=== PATIENT | female | born 1995 | race Caucasian/White ===

== ENCOUNTER 2017-01-01 23:56 | Emergency (ER) ==
[2017-01-02 00:12] VITALS: BP 115/75; TEMP 99.7; BMI 26.6
[2017-01-02] MEDS ORDERED: DECADRON 4 MG/ML SDV IM STA (00:21)
[2017-01-02] MEDS ORDERED: ZANTAC IM STA (00:22)
[2017-01-02] MEDS ORDERED: TAGAMET PO STA (00:33)
[2017-01-02] MEDS ORDERED: BENADRYL IM STA (00:36)
--- NOTE | 2017-01-02 00:45 | ED.PDOC ---
General ED Provider: Dr. ZOE FERMIN-ER Chief Complaint: Rash Stated Complaint: velma got this rash--im allergic to something Time Seen by Physician: 00:00 Mode of Arrival: Walk-In Information Source: Patient Exam Limitations: No limitations Nursing and Triage Documentation Reviewed and Agree: Yes Skin Complaint Exam - Skin Rash/Itching Complaint/Exam Onset/Duration: several hoursd Symptoms Are: Still present Initial Severity: Mild Current Severity: Moderate Location: neck and right arm Potential Exposures: Reports: Unknown Aggravating: Reports: None Alleviating: Reports: None Associated Signs and Symptoms: Denies: Difficulty breathing, Fever, Chills Skin Findings: Present: Dry scaly skin Differential Diagnoses: Allergic Reaction, Contact Dermatitis Review of Systems - Review Of Systems Constitutional: Reports: No symptoms Eyes: Reports: No symptoms Ears, Nose, Mouth, Throat: Reports: No symptoms Respiratory: Reports: No symptoms Cardiac: Reports: No symptoms GI: Reports: No symptoms : Reports: No symptoms Musculoskeletal: Reports: No symptoms Skin: Reports: Rash Neurological: Reports: No symptoms Endocrine: Reports: No symptoms Hematologic/Lymphatic: Reports: No symptoms All Other Systems: Reviewed and Negative Past Medical History - Past Medical History Endocrine: Reports: Unknown Cardiovascular: Reports: Unknown Respiratory: Reports: Unknown Hematological: Reports: Unknown Gastrointestinal: Reports: Unknown Genitourinary: Reports: Unknown Neuro/Psych: Reports: Unknown Musculoskeletal: Reports: Unknown Cancer: Reports: Unknown Last Menstrual Period: 12/21/16 - Surgical History General Surgical History: Reports: Unknown - Family History Family History: Reports: Unknown - Social History Smoking Status: Current every day smoker Hx Substance Use: Yes (marijuana) Alcohol Screening: Occasionally Lives: With family - Immunizations Tetanus Shot up to Date: Yes Physical Exam - Physical Exam Appearance: Well-appearing, No pain distress, Well-nourished Eyes: MERVAT, EOMI, Conjunctiva clear ENT: Ears normal, Nose normal, Oropharynx normal Respiratory: Airway patent Cardiovascular: RRR, Pulses normal, No rub, No murmur GI/: Soft, Nontender, No masses, Bowel sounds normal, No Organomegaly Musculoskeletal: Normal strength, ROM intact, No edema, No calf tenderness Skin: Warm (noted urticarial rash over right arm and neck anteriorly), Dry, Normal color Neurological: Sensation intact, Motor intact, Reflexes intact, Cranial nerves intact, Alert, Oriented Psychiatric: Affect appropriate, Mood appropriate Critical Care Note - Critical Care Note Total Time (mins): 0 Course - Course Orders, Labs, Meds: Orders Category Date Time Status Cimetidine [Tagamet] MEDS 01/02/17 00:33 Discontinued 400 mg PO ONCE STA Dexamethasone 4 mg/ml Inj [Decadron 4 mg/ml Sdv] MEDS 01/02/17 00:21 Discontinued 8 mg IM ONCE STA Diphenhydramine Inj [Benadryl] MEDS 01/02/17 00:36 Discontinued 50 mg IM ONCE STA Medications Discontinued Medications Generic Name Dose Route Start Last Admin Trade Name Miteshq PRN Reason Stop Dose Admin Cimetidine 400 mg 01/02/17 00:33 01/02/17 00:41 Tagamet PO 01/02/17 00:34 400 mg ONCE STA Administration Dexamethasone Sodium Phosphate 8 mg 01/02/17 00:21 01/02/17 00:38 Decadron 4 Mg/Ml Sdv IM 01/02/17 00:22 8 mg ONCE STA Administration Diphenhydramine HCl 50 mg 01/02/17 00:36 01/02/17 00:40 Benadryl IM 01/02/17 00:37 50 mg ONCE STA Administration Vital Signs: Temp Pulse Resp BP Pulse Ox 01/01/17 23:59 99.7 F H 88 20 115/75 97 Departure - Departure Time of Disposition: 01:47 Disposition: HOME SELF-CARE Discharge Problem: Pruritic rash Instructions: Acute Rash (ED) Condition: Good Pt referred to PMD for follow-up: Yes Additional Instructions: medrol dose pack--tagamet 400mg bid #30---f/u with pcp--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
== END 2017-01-02 01:55 | disposition home or self-care (01) ==
LOC: ED 23:56
DX: R21 Rash and other nonspecific skin eruption (principal); L29.9 Pruritus, unspecified; F17.210 Nicotine dependence, cigarettes, uncomplicated
CPT/HCPCS: 96372; 99282

== ENCOUNTER 2017-03-06 21:37 | Emergency (ER) ==
[2017-03-06 21:48] VITALS: BP 144/92; TEMP 99.1; BMI 27.1
[2017-03-06 22:02] LABS: ADD URINE MICROSCOPIC NO; BILIRUBIN,URINE Negative (NEGATIVE); KETONES,URINE Negative (NEGATIVE); LEUKOCYTE ESTERASE ,URINE Negative (NEGATIVE); NITRITE,URINE Negative (NEGATIVE); PROTEIN,URINE Negative (NEGATIVE); URINE PREGNANCY INTERNAL QC INTERNAL QC VALID; URINE, BLOOD Negative (NEGATIVE)
--- NOTE | 2017-03-06 22:56 | ED.PDOC ---
General ED Provider: Dr. ZOE FERMIN-ER Chief Complaint: Urinary Problem Stated Complaint: im urinating frequentlyu Time Seen by Physician: 21:45 Mode of Arrival: Walk-In Information Source: Patient Exam Limitations: No limitations Primary Care Provider: JOAQUIN CHAVIRA Nursing and Triage Documentation Reviewed and Agree: Yes Complaint Exam - UTI Female Complaint/Exam Onset/Duration: 24hrs Symptoms Are: Still present Timing: Constant Initial Severity: Mild Current Severity: Moderate Location of Pain: Reports: Suprapubic Associated Signs and Symptoms: Denies: Fever, Chills, Flank pain, Dyspareunia, Vaginal discharge Patient Rh Status: Unknown Related Surgical History: Reports: None CVA Tenderness: No Suprapubic Tenderness: No Differential Diagnoses: Cystitis Review of Systems - Review Of Systems Constitutional: Reports: No symptoms Eyes: Reports: No symptoms Ears, Nose, Mouth, Throat: Reports: No symptoms Respiratory: Reports: No symptoms Cardiac: Reports: No symptoms GI: Reports: No symptoms : Reports: Dysuria, Frequency, Flank pain Musculoskeletal: Reports: No symptoms Skin: Reports: No symptoms Neurological: Reports: No symptoms Endocrine: Reports: No symptoms Hematologic/Lymphatic: Reports: No symptoms All Other Systems: Reviewed and Negative Past Medical History - Past Medical History Endocrine: Reports: Unknown Cardiovascular: Reports: Unknown Respiratory: Reports: Unknown Hematological: Reports: Unknown Gastrointestinal: Reports: Unknown Genitourinary: Reports: Unknown Neuro/Psych: Reports: Unknown Musculoskeletal: Reports: Unknown Cancer: Reports: Unknown Last Menstrual Period: 02/14/17 - Surgical History General Surgical History: Reports: Unknown - Family History Family History: Reports: Unknown - Social History Smoking Status: Current every day smoker Hx Substance Use: Yes (marijuana) Alcohol Screening: Occasionally - Immunizations Tetanus Shot up to Date: No (unsure) Physical Exam - Physical Exam Appearance: Well-appearing, No pain distress, Well-nourished Eyes: MERVAT, EOMI, Conjunctiva clear ENT: Ears normal, Nose normal, Oropharynx normal Neck: Supple Respiratory: Airway patent, Breath sounds clear, Breath sounds equal, Respirations nonlabored Cardiovascular: RRR, Pulses normal, No rub, No murmur GI/: Soft Musculoskeletal: Normal strength Skin: Warm, Dry, Normal color Neurological: Sensation intact, Motor intact, Reflexes intact, Cranial nerves intact, Alert, Oriented Psychiatric: Affect appropriate, Mood appropriate Interpretation - Radiology Interpretation Radiology Interpretation By: Radiologist Radiology Results: Negative Exam Interpreted: CT Scan Critical Care Note - Critical Care Note Total Time (mins): 0 Course - Course Orders, Labs, Meds: Lab Review 03/06/17 21:52 Urine Color Yellow Urine Clarity Clear Urine pH 7.0 Ur Specific [place] 1.015 Urine Protein Negative Urine Glucose (UA) Negative Urine Ketones Negative Urine Blood Negative Urine Nitrite Negative Urine Bilirubin Negative Urine Urobilinogen 0.2 Ur Leukocyte Esterase Negative Urine Test Negative Orders Category Date Time Status URINALYSIS C & S IF INDICATED Stat LAB 03/06/17 21:52 Completed URINE Stat LAB 03/06/17 21:[address] ABDOMEN/PELVIS WO CONTRAST Stat RADS 03/06/17 22:10 Completed Vital Signs: Temp Pulse Resp BP Pulse Ox 03/06/17 21:40 99.1 F 111 H 20 144/92 H 98 Departure - Departure Time of Disposition: 23:07 Disposition: HOME SELF-CARE Discharge Problem: Increased frequency of urination Instructions: Dysuria (ED) Condition: Good Pt referred to PMD for follow-up: Yes Additional Instructions: f/u with pcp this week Allergies/Adverse Reactions: Allergies acetaminophen [From Vicodin] Adverse Reaction (Verified 03/06/17 21:49) blueberry Adverse Reaction (Verified 03/06/17 21:49) hydrocodone [From Vicodin] Adverse Reaction (Verified 03/06/17 21:49) ibuprofen Adverse Reaction (Verified 03/06/17 21:49) kiwi Adverse Reaction (Verified 03/06/17 21:49) pineapple Adverse Reaction (Verified 03/06/17 21:49) wasp Allergy (Severe, Uncoded 03/06/17 21:49) ravinder Notified patient to get medical alert necklace Home Medications: Ambulatory Orders Lamotrigine [Lamotrigine ER] 50 mg PO DAILY 03/06/17 Disposition Discussed With: Patient, Family
--- NOTE | 2017-03-06 23:01 | CT ---
EXAM: CT of the abdomen and pelvis without contrast. HISTORY: Left flank pain. PROCEDURE: Contiguous axial CT images of the abdomen and pelvis without contrast with coronal and s agittal reformats. FINDINGS: The liver, gallbladder, pancreas, spleen, adrenal glands and kidneys are normal in appeara nce. No nephrolithiasis or hydronephrosis. The ureters are incompletely visualized and a non-obstr ucting ureterolith cannot be excluded. The abdominal aorta is normal in appearance. The visualized loops of bowel and appendix are normal in appearance. No free fluid or free air in the abdomen or p cristofer. The bladder is minimally filled with no abnormality identified. The uterus is unremarkable. The bones and soft tissues are unremarkable. Impression: Negative CT of the abdomen and pelvis as described.
== END 2017-03-06 23:20 | disposition home or self-care (01) ==
LOC: ED 21:37
DX: R35.0 Frequency of micturition (principal); R30.0 Dysuria
CPT/HCPCS: 81001; 81025; 99283

== ENCOUNTER 2017-03-23 11:16 | Outpatient (CLI) ==
[2017-03-23 13:10] LABS: FLU INTERNAL QC INTERNAL QC VALID; RAPID FLU A NEGATIVE (NEGATIVE); RAPID FLU B NEGATIVE (NEGATIVE)
== END 2017-03-23 11:17 | disposition home or self-care (01) ==
LOC: LAB 11:16
PROVIDERS: ATTEND Nurse Practitioner Family
DX: R52 Pain, unspecified (principal)
CPT/HCPCS: 87804

== ENCOUNTER 2017-04-22 17:26 | Emergency (ER) ==
[2017-04-22 17:26] VITALS: BMI 27.1
[2017-04-22] MEDS ORDERED: ROCEPHIN IM STA (17:36)
[2017-04-22] MEDS ORDERED: LIDOCAINE 1 % AMP 5 ML (SUTURES) IM STA (17:36)
[2017-04-22 17:40] VITALS: BP 133/71; TEMP 97.8
--- NOTE | 2017-04-22 17:40 | ED.PDOC ---
General ED Provider: Dr. SELENE MCINTYRE Chief Complaint: Urinary Problem Stated Complaint: dysuria Time Seen by Physician: 17:30 (seen with nursing staff at all times and E/D TECH ) Mode of Arrival: Walk-In Information Source: Patient Exam Limitations: No limitations Primary Care Provider: JOAQUIN DELUNA Nursing and Triage Documentation Reviewed and Agree: Yes Complaint Exam - Complaint/Exam Patient Complains of: Reports: Dysuria Onset/Duration: 3 days Symptoms Are: Still present Timing: Constant Initial Severity: Moderate Current Severity: Mild Location of Pain: Reports: Suprapubic Character: Reports: Burning Aggravating: Reports: Urination Alleviating: Reports: None Associated Signs and Symptoms: Reports: Dysuria. Denies: Diaphoresis, Back pain , Fever, Hematuria, Constipation, Blood in stool, Rectal pain, Appetite change, Nausea, Vomiting, Decreased urine output, Increased urine frequency, Increased thirst, Decreased activity, Lethargy, Abdominal Pain, Bubble bath use, Vaginal bleeding, Vaginal discharge, Genital swelling, Genital blisters, Retained foreign body Ectopic Risk Factors: Reports: None Ovarian Torsion Risk Factors: Reports: Reproductive age Surgical Obstruction Risk Factors: Reports: None RH Status: Unknown Differential Diagnoses: UTI Review of Systems - Review Of Systems Constitutional: Reports: No symptoms Eyes: Reports: No symptoms Ears, Nose, Mouth, Throat: Reports: No symptoms Respiratory: Reports: No symptoms Cardiac: Reports: No symptoms GI: Reports: No symptoms : Reports: Dysuria, Frequency Musculoskeletal: Reports: No symptoms Skin: Reports: No symptoms Neurological: Reports: No symptoms Endocrine: Reports: No symptoms Hematologic/Lymphatic: Reports: No symptoms All Other Systems: Reviewed and Negative Past Medical History - Past Medical History Endocrine: Reports: Unknown Cardiovascular: Reports: Unknown Respiratory: Reports: Unknown Hematological: Reports: Unknown Gastrointestinal: Reports: Unknown Genitourinary: Reports: Unknown Neuro/Psych: Reports: Unknown Musculoskeletal: Reports: Unknown Cancer: Reports: Unknown Last Menstrual Period: 04/13 - Surgical History General Surgical History: Reports: Unknown - Family History Family History: Reports: Unknown - Social History Smoking Status: Current some day smoker Hx Substance Use: Yes (rogelio) Alcohol Screening: Occasionally - Immunizations Tetanus Shot up to Date: Yes Physical Exam - Physical Exam Appearance: Well-appearing, No pain distress, Well-nourished Eyes: MERVAT, EOMI, Conjunctiva clear ENT: Ears normal, Nose normal, Oropharynx normal Respiratory: Airway patent, Breath sounds clear, Breath sounds equal, Respirations nonlabored Cardiovascular: RRR, Pulses normal, No rub, No murmur GI/: Soft, Nontender, No masses, Bowel sounds normal, No Organomegaly Musculoskeletal: Normal strength, ROM intact, No edema, No calf tenderness Skin: Warm, Dry, Normal color Neurological: Sensation intact, Motor intact, Reflexes intact, Cranial nerves intact, Alert, Oriented Psychiatric: Affect appropriate, Mood appropriate Critical Care Note - Critical Care Note Total Time (mins): 0 Course - Course Orders, Labs, Meds: Orders Category Date Time Status UA [URINALYSIS C & S IF INDICATED] Stat LAB 04/22/17 17:37 Uncollected Ceftriaxone Sodium [Rocephin] MEDS 04/22/17 17:36 Stat 1 gm IM ONCE STA Lidocaine HCl/Pf [Lidocaine 1 % Amp 5 ml (Sutures)] MEDS 04/22/17 17:36 Stat 2.1 ml IM ONCE STA Medications Generic Name Dose Route Start Last Admin Trade Name Freq PRN Reason Stop Dose Admin Ceftriaxone Sodium 1 gm 04/22/17 17:36 Rocephin IM 04/22/17 17:37 ONCE STA Lidocaine HCl 2.1 ml 04/22/17 17:36 Lidocaine 1 % Amp 5 Ml (Sutures) IM 04/22/17 17:37 ONCE STA Vital Signs: Temp Pulse Resp BP Pulse Ox 04/22/17 17:29 97.8 F 88 16 133/71 98 Departure - Departure Time of Disposition: 18:15 Disposition: HOME SELF-CARE Discharge Problem: Urinary symptoms, Urinary tract infectious disease Instructions: Urinary Tract Infection in Women (ED) Condition: Good Pt referred to PMD for follow-up: No Allergies/Adverse Reactions: Allergies acetaminophen [From Vicodin] Adverse Reaction (Verified 03/06/17 21:49) blueberry Adverse Reaction (Verified 03/06/17 21:49) hydrocodone [From Vicodin] Adverse Reaction (Verified 03/06/17 21:49) ibuprofen Adverse Reaction (Verified 03/06/17 21:49) kiwi Adverse Reaction (Verified 03/06/17 21:49) pineapple Adverse Reaction (Verified 03/06/17 21:49) wasp Allergy (Severe, Uncoded 03/06/17 21:49) swelliing Notified patient to get medical alert necklace Home Medications: Ambulatory Orders Lamotrigine [Lamotrigine ER] 50 mg PO DAILY 03/06/17
[2017-04-22 17:46] LABS: BILIRUBIN,URINE 1+ (NEGATIVE); KETONES,URINE Negative (NEGATIVE); LEUKOCYTE ESTERASE ,URINE 2+ (NEGATIVE); NITRITE,URINE Negative (NEGATIVE); PROTEIN,URINE 2+ (NEGATIVE); URINE, BLOOD 3+ (NEGATIVE)
[2017-04-22 17:48] LABS: ADD URINE MICROSCOPIC YES
== END 2017-04-22 18:10 | disposition home or self-care (01) ==
LOC: ED 17:26
DX: N39.0 Urinary tract infection, site not specified (principal); F17.210 Nicotine dependence, cigarettes, uncomplicated
CPT/HCPCS: 81001; 87086; 96372; 99283

== ENCOUNTER 2017-05-30 12:06 | Outpatient (CLI) ==
[2017-05-30 12:55] LABS: BASOPHILS % (AUTO) 0.3 % (0.0-3.0); EOSINOPHILS # (AUTO) 0.2 K/ul (0.0-0.7); EOSINOPHILS % (AUTO) 1.7 % (0.0-7.0); HEMATOCRIT 40.6 % (37.0-47.0); HEMOGLOBIN 14.4 g/dl (12.0-16.0); LYMPHOCYTES # (AUTO) 1.7 K/uL (0.60-3.4); LYMPHOCYTES % (AUTO) 15.9 (10.0-50.0); MEAN CORPUSCULAR HGB CONC 35.5 (31.8-35.4); MEAN CORPUSCULAR VOLUME 87.5 fl (81.0-99.0); MONOCYTES # (AUTO) 0.6 K/uL (0.4-2.0); MONOCYTES % (AUTO) 5.8 (0-10); NEUTROPHILS # (AUTO) 8.3 K/ul (2.0-6.9); NEUTROPHILS % (AUTO) 75.3; PLATELET COUNT 234 10^3/uL (140-440); RED BLOOD COUNT 4.64 10^6/ul (4.20-5.40); WHITE BLOOD COUNT 10.97 K/ul (4.6-10.2)
[2017-05-30 13:32] LABS: ALBUMIN 3.9 g/dL (3.4-5.0); ALBUMIN/GLOBULIN RATIO 1.15; ANION GAP 16.5; BILIRUBIN,TOTAL 0.29 mg/dL (0.00-1.20); BUN/CREATININE RATIO 16.66; CALCIUM 9.2 mg/dL (8.2-10.2); CREATININE 0.66 mg/dL (0.60-1.30); POTASSIUM 3.5 mmol/L (3.5-5.10); TOTAL PROTEIN 7.3 g/dL (6.4-8.2)
[2017-05-30 13:38] LABS: BILIRUBIN,URINE Negative (NEGATIVE); KETONES,URINE Negative (NEGATIVE); LEUKOCYTE ESTERASE ,URINE Negative (NEGATIVE); NITRITE,URINE Negative (NEGATIVE); PROTEIN,URINE Negative (NEGATIVE); URINE, BLOOD Negative (NEGATIVE)
[2017-05-30 13:41] LABS: ADD URINE MICROSCOPIC NO
== END 2017-05-30 12:07 | disposition home or self-care (01) ==
LOC: LAB 12:06
PROVIDERS: ATTEND Nurse Practitioner Family
DX: R19.7 Diarrhea, unspecified (principal); Z3A.01 Less than 8 weeks gestation of pregnancy
CPT/HCPCS: 36415; 80053; 81001; 82150; 83690; 85025

== ENCOUNTER 2017-12-01 16:17 | Outpatient (POV) | END 2017-12-01 16:18 | disposition home or self-care (01) | LOC: LAB 16:17 | PROVIDERS: ATTEND Family Medicine | DX: R10.10 Upper abdominal pain, unspecified (principal); R19.7 Diarrhea, unspecified ==

== ENCOUNTER 2018-06-11 12:19 | Outpatient (CLI) | END 2018-06-11 12:20 | disposition home or self-care (01) | LOC: FCC-LAB 12:19 | PROVIDERS: ATTEND Family Medicine | DX: Z32.01 Encounter for pregnancy test, result positive (principal) | CPT/HCPCS: 36415; 81001; 84702; 87086; 87800 ==

== ENCOUNTER 2018-06-13 15:38 | Outpatient (CLI) | END 2018-06-13 15:39 | disposition home or self-care (01) | LOC: FCC-LAB 15:38 | PROVIDERS: ATTEND Family Medicine | DX: R31.9 Hematuria, unspecified (principal); N93.9 Abnormal uterine and vaginal bleeding, unspecified | CPT/HCPCS: 36415; 84702 ==

== ENCOUNTER 2018-07-01 12:35 | Emergency (ER) ==
[2018-07-01 12:41] VITALS: BP 125/81; TEMP 98.1; BMI 32.5
--- NOTE | 2018-07-01 13:15 | ED.PDOC ---
General ED Provider: Dr. ZOE ROBERTS Chief Complaint: Sore Throat Stated Complaint: Sore throat: Hx of recurrent sore throat, Has tonsillar infections but alwarys negative for strep Time Seen by Physician: 12:50 Mode of Arrival: Walk-In Information Source: Patient Exam Limitations: No limitations Primary Care Provider: JOAQUIN DELUNA Nursing and Triage Documentation Reviewed and Agree: Yes Does patient meet sepsis criteria?: No System Inflammatory Response Syndrome: Not Applicable Sepsis Protocol: For patient's 13 years and over: Temp is 96.8 and below OR 101 and greater Pulse >90 BPM Resp >20/minute Acutely Altered Mental Status Are patient's symptoms suggestive of a new infection, such as: -Pneumonia -Skin, Soft Tissue -Endocarditis -UTI -Bone, Joint Infection -Implantable Device -Acute Abdominal Infection -Wound Infection -Meningitis -Blood Stream Catheter Infection -Unknown EENT Complaint Exam - Throat Complaint/Exam Onset/Duration: 2 days Symptoms Are: Still present Timimg: Constant Initial Severity: Moderate Current Severity: Mild Aggravating: Reports: Eating Alleviating: Reports: None (Usually does not take analgesics; If necessay will take Acetaminophen) Associated Signs and Symptoms: Denies: Fever, Dysphagia, Drooling, Foreign body sensation, Chills, Cough, Wheezing, Hoarseness, Sinus discomfort, Nasal congestion, Difficulty breathing, Lethargy, Irritability, Decreased activity, Vomiting, Diarrhea, Decreased hearing, Ear drainage Uvula Midline: Yes Ora-tonsillar Fluctuence: No Scarlatinaform Rash Present: No Lesions: Absent: Lip, Tongue, Buccal Mucosa, Pharynx Exanthem: Absent: Lip, Tongue, Buccal Mucosa, Pharynx Vesicles: Absent: Lip, Tongue, Buccal Mucosa, Pharynx Stridor Present: No Sinus Tenderness Present: No Tonsillar Hypertrophy Present: Yes Adenopathy Present: Yes (Rt anterior tonsillar) Splenomegaly Present: No Differential Diagnoses: Pharyngitis, Tonsillitis Review of Systems - Review Of Systems Constitutional: Reports: No symptoms Eyes: Reports: No symptoms Ears, Nose, Mouth, Throat: Reports: No symptoms, Throat pain Respiratory: Reports: No symptoms Cardiac: Reports: No symptoms GI: Reports: No symptoms : Reports: No symptoms Musculoskeletal: Reports: No symptoms Skin: Reports: No symptoms Neurological: Reports: No symptoms Endocrine: Reports: No symptoms Hematologic/Lymphatic: Reports: No symptoms All Other Systems: Reviewed and Negative Past Medical History - Past Medical History Endocrine: Reports: Unknown Cardiovascular: Reports: Unknown Respiratory: Reports: Unknown Hematological: Reports: Unknown Gastrointestinal: Reports: Unknown Genitourinary: Reports: Unknown Neuro/Psych: Reports: Unknown Musculoskeletal: Reports: Unknown Cancer: Reports: Unknown Last Menstrual Period: june 10 - Surgical History General Surgical History: Reports: Unknown - Family History Family History: Reports: Unknown - Social History Smoking Status: Current some day smoker Hx Substance Use: Yes (marjanna) Alcohol Screening: Occasionally Physical Exam - Physical Exam Appearance: Well-appearing, No pain distress, Well-nourished Eyes: MERVAT, EOMI, Conjunctiva clear ENT: Ears normal, Nose normal, Erythema Respiratory: Airway patent, Breath sounds clear, Breath sounds equal, Respirations nonlabored Cardiovascular: RRR, Pulses normal, No rub, No murmur GI/: Soft, Nontender, No masses, Bowel sounds normal, No Organomegaly Musculoskeletal: Normal strength, ROM intact, No edema, No calf tenderness Skin: Warm, Dry, Normal color Neurological: Sensation intact, Motor intact, Reflexes intact, Cranial nerves intact, Alert, Oriented Psychiatric: Affect appropriate, Mood appropriate Critical Care Note - Critical Care Note Total Time (mins): 0 Course - Course Vital Signs: Temp Pulse Resp BP Pulse Ox 07/01/18 12:36 98.1 F 77 20 125/81 98 Departure - Departure Time of Disposition: 14:00 Disposition: HOME SELF-CARE Discharge Problem: Acute tonsillitis Instructions: Tonsillitis (ED) Condition: Good Pt referred to PMD for follow-up: Yes IPMP verified?: No Additional Instructions: Maintain adequate oral fluids intake Advance diet per tolerance Tylenol for pain or temp above 101 degrees Rest Zithromax as directed See PCP in 5-8 days as needed for follow up Prescriptions: Azithromycin [Zithromax] 250 mg PO DAILY #6 tablet Allergies/Adverse Reactions: Allergies blueberry Adverse Reaction (Verified 07/01/18 12:42) ibuprofen Adverse Reaction (Verified 07/01/18 12:42) kiwi Adverse Reaction (Verified 07/01/18 12:42) pineapple Adverse Reaction (Verified 07/01/18 12:42) wasp Allergy (Severe, Uncoded 07/01/18 12:42) ravinder Notified patient to get medical alert necklace Home Medications: Ambulatory Orders Azithromycin [Zithromax] 250 mg PO DAILY #6 tablet 07/01/18 Disposition Discussed With: Patient, Family
== END 2018-07-01 14:14 | disposition home or self-care (01) ==
LOC: ED 12:35
DX: J03.90 Acute tonsillitis, unspecified (principal); F17.210 Nicotine dependence, cigarettes, uncomplicated
CPT/HCPCS: 87651; 99283

== ENCOUNTER 2018-08-14 13:37 | Outpatient (CLI) | END 2018-08-14 13:38 | disposition home or self-care (01) | LOC: FCC-LAB 13:37 | PROVIDERS: ATTEND Family Medicine | DX: N30.90 Cystitis, unspecified without hematuria (principal) | CPT/HCPCS: 87086; 87186 ==

== ENCOUNTER 2018-09-07 16:49 | Outpatient (CLI) | END 2018-09-07 16:50 | disposition home or self-care (01) | LOC: FCC-LAB 16:49 | PROVIDERS: ATTEND Family Medicine | DX: Z20.2 Contact with and (suspected) exposure to infections with a predominantly sexual mode of transmission (principal) | CPT/HCPCS: 87800 ==

== ENCOUNTER 2018-09-17 15:56 | Outpatient (CLI) | END 2018-09-17 15:57 | disposition home or self-care (01) | LOC: RHC-LAB 15:56 | PROVIDERS: ATTEND Nurse Practitioner Family | DX: Z01.89 Encounter for other specified special examinations (principal) | CPT/HCPCS: 36415; 80307 ==

== ENCOUNTER 2018-11-13 08:19 | Emergency (ER) ==
[2018-11-13 08:26] VITALS: BP 133/86; TEMP 98.3; BMI 33.6
[2018-11-13 08:50] LABS: URINE PREGNANCY TEST NEGATIVE (NEGATIVE)
[2018-11-13] MEDS ORDERED: MORPHINE 4 MG/ML SYRINGE IM STA (09:04)
[2018-11-13] MEDS ORDERED: ZOFRAN 4 MG/2 ML IM STA (09:04)
--- NOTE | 2018-11-13 09:52 | CT ---
EXAM: CT brain without contrast HISTORY: Migraine, headache TECHNIQUE: Multi-slice sequential. Coronal and sagital reformations were performed. COMPARISON: None FINDINGS: There is no acute intracranial hemorrhage, extraxial fluid collection, mass affect, or midlineshift.T he ventricles are normal in size.The bonilla-white matter interface is maintained.The basal cisterns are patent.Mucosal thickening is seen within the left sphenoid sinus. Mastoid air cells are well aerate d.The calvarium is unremarkable. IMPRESSION: No acute intracranial findings. Left sphenoid chronic sinus disease.
--- NOTE | 2018-11-13 10:19 | ED.PDOC ---
General ED Provider: Dr. SELENE MCINTYRE Chief Complaint: Headache Stated Complaint: headache Time Seen by Physician: 08:20 Mode of Arrival: Walk-In Information Source: Patient Exam Limitations: No limitations Primary Care Provider: ROSHAN MYERS Nursing and Triage Documentation Reviewed and Agree: Yes Does patient meet sepsis criteria?: No System Inflammatory Response Syndrome: Not Applicable Sepsis Protocol: For patient's 13 years and over: Temp is 96.8 and below OR 101 and greater Pulse >90 BPM Resp >20/minute Acutely Altered Mental Status Are patient's symptoms suggestive of a new infection, such as: -Pneumonia -Skin, Soft Tissue -Endocarditis -UTI -Bone, Joint Infection -Implantable Device -Acute Abdominal Infection -Wound Infection -Meningitis -Blood Stream Catheter Infection -Unknown Neurological Complaint Exam - Headache Complaint/Exam Onset: Gradual Duration: 2 day Symptoms Are: Still present Timing: Intermittent Worst Headache Ever: No Initial Severity: Moderate Current Severity: Moderate Location: Frontal, Temporal Character: Reports: Throbbing, Typical headache Aggravating: Reports: None Alleviating: Reports: None Associated Signs and Symptoms: Denies: Dizziness, Seizure, Nausea, Vomiting, Sinus pressure, Fever, Neck pain, Neck stiffness, Decreased LOC, Visual changes Related History: Reports: Similar episode Related Surgical History: Reports: None SAH Risk Factors: Reports: None Meningitis Risk Factors: Reports: None SDH Risk Factors: Reports: None Temporal Arteritis Risk Factors: Reports: None Normal Head CT Within Last 12 Months: No Fundoscopic Exam: Present: Normal Findings Papilledema Present: No Temporal Artery Tenderness: Present: None Sinus Tenderness: Present: None TMJ Tenderness: Present: None Glascow Coma Scale (see protocol): 15 Meningeal Signs Positive: No Pain on Passive Flexion-Positive Kernig's: No ROM Limited In: No Limitiations Focal Weakness: Present: None Focal Sensory Loss: Present: None Gait: Normal Nystagmus Present: No Gag Reflex Present: No [id number]: Normal Findings Babinski Sign: Negative Right, Negative Left Differential Diagnoses: Migraine Review of Systems - Review Of Systems Constitutional: Reports: No symptoms Eyes: Reports: No symptoms Ears, Nose, Mouth, Throat: Reports: No symptoms Respiratory: Reports: No symptoms Cardiac: Reports: No symptoms GI: Reports: No symptoms : Reports: No symptoms Musculoskeletal: Reports: No symptoms Skin: Reports: No symptoms Neurological: Reports: Headache Endocrine: Reports: No symptoms Hematologic/Lymphatic: Reports: No symptoms All Other Systems: Reviewed and Negative Past Medical History - Past Medical History Previously Healthy: Yes Endocrine: Reports: Unknown Cardiovascular: Reports: Unknown Respiratory: Reports: Unknown Hematological: Reports: Unknown Gastrointestinal: Reports: Unknown Genitourinary: Reports: Unknown Neuro/Psych: Reports: Unknown Musculoskeletal: Reports: Unknown Cancer: Reports: Unknown Last Menstrual Period: sep 2018 - Surgical History General Surgical History: Reports: Unknown - Family History Family History: Reports: Unknown - Social History Smoking Status: Former smoker Hx Substance Use: No Alcohol Screening: None Physical Exam - Physical Exam Appearance: Well-appearing, No pain distress, Well-nourished Eyes: MERVAT, EOMI, Conjunctiva clear ENT: Ears normal, Nose normal, Oropharynx normal Respiratory: Airway patent, Breath sounds clear, Breath sounds equal, Respirations nonlabored Cardiovascular: RRR, Pulses normal, No rub, No murmur GI/: Soft, Nontender, No masses, Bowel sounds normal, No Organomegaly Musculoskeletal: Normal strength, ROM intact, No edema, No calf tenderness Skin: Warm, Dry, Normal color Neurological: Sensation intact, Motor intact, Reflexes intact, Cranial nerves intact, Alert, Oriented Psychiatric: Affect appropriate, Mood appropriate - NIH Stroke Scale 1a. Level of Consciousness: 0=Alert and keenly responsive 1b. Level of Consciousness Questions: 0=Answers correctly to two questions 1c. Level of Consciousness Commands: 0=Performs two tasks correctly 2. Best Gaze: 0=Normal 3. Visual: 0=No visual loss 4. Facial Palsy: 0=Normal 5a. Motor Left Arm: 0=No drift,arm holds 90 degrees for 10 sec., leg 30 degrees for 5 sec. 5b. Motor Right Arm: 0=No drift,arm holds 90 degrees for 10 sec., leg 30 degrees for 5 sec. 6a. Motor Left Le=No drift,arm holds 90 degrees for 10 sec., leg 30 degrees for 5 sec. 6b. Motor Right Le=No drift,arm holds 90 degrees for 10 sec., leg 30 degrees for 5 sec. 7. Limb Ataxia: 0=Absent 8. Sensory: 0=Normal 9. Best Language: 0=No aphasia 10. Dysarthria: 0=Normal 11. Extincion and Inattention: 0=Normal Stroke Scale Total: 0 Critical Care Note - Critical Care Note Total Time (mins): 0 Course - Course Hematology/Chemistry: 11/13/18 09:16 11/13/18 09:16 Orders, Labs, Meds: Lab Review 11/13/18 11/13/18 11/13/18 08:35 08:35 09:16 WBC 9.16 RBC 4.69 Hgb 13.4 Hct 40.3 MCV 85.9 MCH 28.6 MCHC 33.3 RDW Coeff of Chung 12.0 Plt Count 252 Immature Gran % (Auto) 0.4 Neut % (Auto) 59.8 Lymph % (Auto) 31.1 [place] % (Auto) 6.7 Eos % (Auto) 1.7 Baso % (Auto) 0.3 Immature Gran # (Auto) 0.0 Neut # (Auto) 5.5 Lymph # (Auto) 2.9 [place] # (Auto) 0.6 Eos # (Auto) 0.2 Baso # (Auto) 0.0 Sodium Potassium Chloride Carbon Dioxide Anion Gap BUN Creatinine Estimated GFR (MDRD) BUN/Creatinine Ratio Glucose Calcium Total Bilirubin AST ALT Alkaline Phosphatase Total Protein Albumin Globulin Albumin/Globulin Ratio Urine Color Yellow Urine Clarity Clear Urine pH 6.0 Ur Specific [place] >=1.030 Urine Protein Negative Urine Glucose (UA) Negative Urine Ketones Negative Urine Blood Negative Urine Nitrite Negative Urine Bilirubin Negative Urine Urobilinogen 0.2 Ur Leukocyte Esterase Negative Urine Test Negative 11/13/18 09:16 WBC RBC Hgb Hct MCV MCH MCHC RDW Coeff of Chung Plt Count Immature Gran % (Auto) Neut % (Auto) Lymph % (Auto) [place] % (Auto) Eos % (Auto) Baso % (Auto) Immature Gran # (Auto) Neut # (Auto) Lymph # (Auto) [place] # (Auto) Eos # (Auto) Baso # (Auto) Sodium 137.0 Potassium 3.86 Chloride 106.1 Carbon Dioxide 27.3 Anion Gap 7.46 BUN 18.1 H Creatinine 0.65 Estimated GFR (MDRD) 111.00 BUN/Creatinine Ratio 27.84 Glucose 90.4 Calcium 8.79 Total Bilirubin 0.26 AST 17.1 ALT 12.0 Alkaline Phosphatase 59.3 Total Protein 6.78 Albumin 3.77 Globulin 3.01 Albumin/Globulin Ratio 1.25 Urine Color Urine Clarity Urine pH Ur Specific [place] Urine Protein Urine Glucose (UA) Urine Ketones Urine Blood Urine Nitrite Urine Bilirubin Urine Urobilinogen Ur Leukocyte Esterase Urine Test Orders Category Date Time Status CBC W/ AUTO DIFF Stat LAB 11/13/18 09:16 Completed COMPREHENSIVE METABOLIC PANEL Stat LAB 11/13/18 09:16 Completed URINALYSIS C & S IF INDICATED Stat LAB 11/13/18 08:35 Completed URINE Stat LAB 11/13/18 08:35 Completed Morphine Sulfate [Morphine 4 mg/ml Syringe] MEDS 11/13/18 09:04 Discontinued 4 mg IM ONCE STA Ondansetron HCl/Pf [Zofran 4 mg/2 ml] MEDS 11/13/18 09:04 Discontinued 4 mg IM ONCE STA CT HEAD W/O CONTRAST Stat RADS 11/13/18 09:04 Completed Medications Discontinued Medications Generic Name Dose Route Start Last Admin Trade Name Tc PRN Reason Stop Dose Admin Morphine Sulfate 4 mg 11/13/18 09:04 11/13/18 09:28 Morphine 4 Mg/Ml Syringe IM 11/13/18 09:05 4 mg ONCE STA Administration Ondansetron HCl 4 mg 11/13/18 09:04 11/13/18 09:27 Zofran 4 Mg/2 Ml IM 11/13/18 09:05 4 mg ONCE STA Administration Vital Signs: Temp Pulse Resp BP Pulse Ox 11/13/18 08:20 98.3 F 85 16 133/86 98 Departure - Departure Time of Disposition: 10:19 Disposition: HOME SELF-CARE Discharge Problem: Headache Headache Qualifiers: Headache type: unspecified Headache chronicity pattern: unspecified pattern Intractability: not intractable Qualified Code(s): R51 - Headache Instructions: Migraine Headache (ED) Condition: Good Pt referred to PMD for follow-up: Yes IPMP verified?: No Additional Instructions: Please call your Family Physician as soon as possible to schedule a follow-up appointment. Allergies/Adverse Reactions: Allergies blueberry Adverse Reaction (Verified 11/13/18 08:28) ibuprofen Adverse Reaction (Verified 11/13/18 08:28) kiwi Adverse Reaction (Verified 11/13/18 08:28) pineapple Adverse Reaction (Verified 11/13/18 08:28) wasp Allergy (Severe, Uncoded 07/01/18 12:42) swelliing Notified patient to get medical alert buck
== END 2018-11-13 10:26 | disposition home or self-care (01) ==
LOC: ED 08:19
DX: R51 Headache (principal)
CPT/HCPCS: 36415; 80053; 81001; 81025; 85025; 96372; 99283

== ENCOUNTER 2019-01-01 15:47 | Emergency (ER) | payer MEDICAID, OTHER ==
[2019-01-01 15:53] VITALS: BP 136/90; TEMP 99.2; BMI 35.0
--- NOTE | 2019-01-01 18:28 | ED.PDOC ---
General ED Provider: Dr. ZOE ROBERTS Chief Complaint: Abdominal Pain Stated Complaint: Abdominal pain. Complains of pain to abd and cramping with spotting. Vomited x 1 yesterday. Does not believe she could be . No diarrhea Time Seen by Physician: 18:20 Mode of Arrival: Walk-In Information Source: Patient Exam Limitations: No limitations Primary Care Provider: ROSHAN MYERS Nursing and Triage Documentation Reviewed and Agree: Yes Does patient meet sepsis criteria?: No System Inflammatory Response Syndrome: Not Applicable Sepsis Protocol: For patient's 13 years and over: Temp is 96.8 and below OR 101 and greater Pulse >90 BPM Resp >20/minute Acutely Altered Mental Status Are patient's symptoms suggestive of a new infection, such as: -Pneumonia -Skin, Soft Tissue -Endocarditis -UTI -Bone, Joint Infection -Implantable Device -Acute Abdominal Infection -Wound Infection -Meningitis -Blood Stream Catheter Infection -Unknown GI Complaint Exam - Abdominal Pain Complaint/Exam Onset: Sudden Duration: 1 day Symptoms Are: Still present Timing: Intermittent Initial Severity: Moderate Current Severity: Moderate Location of Pain: Discrete (periumbilical) Radiates To: Denies: Chest, Back, Flank, LLQ, RLQ, Inguinal Character: Reports: Dull, Aching, Cramping Aggravating: Reports: Movement, Deep breaths, Position Alleviating: Reports: Rest Associated Signs and Symptoms: Reports: Nausea. Denies: Diaphoresis, Fever, Cough, Chest pain, Dizziness, Back pain, Constipation, Blood in stool, Dysuria, Urinary frequency, Decreased urine output, Decreased appetite, Vaginal bleeding , Vaginal discharge, Vomiting, Diarrhea, Sore throat, Decreased activity AAA Risk Factors: Reports: None Cardiac Risk Factors: Reports: None Ectopic Risk Factors: Reports: None Ovarian Torsion Risk Factors: Reports: None Surgical Obstruction Risk Factors: Reports: None Related Surgical History: Reports: None Abdominal Findings: Present: Other (minimal tenderness) Differential Diagnoses: Gastroenteritis Review of Systems - Review Of Systems Constitutional: Reports: No symptoms Eyes: Reports: No symptoms Ears, Nose, Mouth, Throat: Reports: No symptoms Respiratory: Reports: No symptoms Cardiac: Reports: No symptoms GI: Reports: No symptoms : Reports: No symptoms Musculoskeletal: Reports: No symptoms Skin: Reports: No symptoms Neurological: Reports: No symptoms Endocrine: Reports: No symptoms Hematologic/Lymphatic: Reports: No symptoms All Other Systems: Reviewed and Negative Past Medical History - Past Medical History Previously Healthy: Yes Endocrine: Reports: Unknown Cardiovascular: Reports: Unknown Respiratory: Reports: Unknown Hematological: Reports: Unknown Gastrointestinal: Reports: Unknown Genitourinary: Reports: Unknown Neuro/Psych: Reports: Unknown Musculoskeletal: Reports: Unknown Cancer: Reports: Unknown Last Menstrual Period: nov 17 2018 - Surgical History General Surgical History: Reports: Unknown - Family History Family History: Reports: Unknown - Social History Smoking Status: Former smoker Hx Substance Use: No Alcohol Screening: None Physical Exam - Physical Exam Appearance: Well-appearing, No pain distress, Well-nourished, Obese Ill-appearing: Mild Pain Distress: None Eyes: MERVAT, EOMI, Conjunctiva clear ENT: Ears normal, Nose normal, Oropharynx normal Respiratory: Airway patent, Breath sounds clear, Breath sounds equal, Respirations nonlabored Cardiovascular: RRR, Pulses normal, No rub, No murmur GI/: Soft, No masses, Bowel sounds normal, No Organomegaly, Tender ( periumbilical with out guarding) Musculoskeletal: Normal strength, ROM intact, No edema, No calf tenderness Skin: Warm, Dry, Normal color Neurological: Sensation intact, Motor intact, Reflexes intact, Cranial nerves intact, Alert, Oriented Psychiatric: Affect appropriate, Mood appropriate Interpretation - Radiology Interpretation Radiology Interpretation By: Radiologist Radiology Results: No acute changes Exam Interpreted: CT Scan (abdomen - no acute changes) Re-Evaluation - Re-Evaluation Time of Re-Evaluation: 21:00 Status: Improved Appearance: NAD Skin: Warm and Dry Neuro: Alert and Oriented X3 CV: RRR Critical Care Note - Critical Care Note Total Time (mins): 0 Course - Course Hematology/Chemistry: 01/01/19 18:50 01/01/19 18:50 Orders, Labs, Meds: Lab Review 01/01/19 01/01/19 01/01/19 17:35 17:35 18:50 WBC 5.34 RBC 5.27 Hgb 15.3 Hct 44.3 MCV 84.1 MCH 29.0 MCHC 34.5 RDW Coeff of Chung 11.8 Plt Count 234 Immature Gran % (Auto) 0.6 Neut % (Auto) 58.5 Lymph % (Auto) 28.7 [place] % (Auto) 10.9 H Eos % (Auto) 0.9 Baso % (Auto) 0.4 Immature Gran # (Auto) 0.0 Neut # (Auto) 3.1 Lymph # (Auto) 1.5 [place] # (Auto) 0.6 Eos # (Auto) 0.1 Baso # (Auto) 0.0 Sodium Potassium Chloride Carbon Dioxide Anion Gap BUN Creatinine Estimated GFR (MDRD) BUN/Creatinine Ratio Glucose Calcium Total Bilirubin AST ALT Alkaline Phosphatase Total Protein Albumin Globulin Albumin/Globulin Ratio Urine Color Yellow Urine Clarity Clear Urine pH 7.0 Ur Specific [place] 1.015 Urine Protein Negative Urine Glucose (UA) Negative Urine Ketones Negative Urine Blood Trace-lysed Urine Nitrite Negative Urine Bilirubin Negative Urine Urobilinogen 0.2 Ur Leukocyte Esterase Negative Urine Microscopic RBC 0-2 Ur Squamous Epith Cells 0-2 Urine Bacteria Trace Urine Test Negative 01/01/19 18:50 WBC RBC Hgb Hct MCV MCH MCHC RDW Coeff of Chung Plt Count Immature Gran % (Auto) Neut % (Auto) Lymph % (Auto) [place] % (Auto) Eos % (Auto) Baso % (Auto) Immature Gran # (Auto) Neut # (Auto) Lymph # (Auto) [place] # (Auto) Eos # (Auto) Baso # (Auto) Sodium 140.0 Potassium 3.92 Chloride 102.1 Carbon Dioxide 29.0 Anion Gap 12.82 BUN 10.4 Creatinine 0.67 Estimated GFR (MDRD) 107.00 BUN/Creatinine Ratio 15.52 Glucose 86.4 Calcium 9.28 Total Bilirubin 0.48 AST 22.5 ALT 12.2 Alkaline Phosphatase 67.1 Total Protein 8.04 Albumin 4.52 Globulin 3.52 Albumin/Globulin Ratio 1.28 Urine Color Urine Clarity Urine pH Ur Specific [place] Urine Protein Urine Glucose (UA) Urine Ketones Urine Blood Urine Nitrite Urine Bilirubin Urine Urobilinogen Ur Leukocyte Esterase Urine Microscopic RBC Ur Squamous Epith Cells Urine Bacteria Urine Test Orders Category Date Time Status NPO REMINDER: IMAGING ONCE CARE 01/01/19 19:34 Completed IV [ED IV/MEDIPORT/POWERPORT] .ONCE EMERGENCY 01/01/19 18:36 Active CBC W/ AUTO DIFF Stat LAB 01/01/19 18:50 Completed CMP [COMPREHENSIVE METABOLIC PANEL] Stat LAB 01/01/19 18:50 Completed UA [URINALYSIS C & S IF INDICATED] Stat LAB 01/01/19 17:35 Completed URINE Stat LAB 01/01/19 17:35 Completed 0.9 % Sodium Chloride [Saline Flush] MEDS 01/01/19 18:38 Ordered 1 syr IVF PRN PRN Hydromorphone HCl [Dilaudid 1 mg/ml Syringe] MEDS 01/01/19 18:39 Discontinued 0.5 mg IVP ONCE STA Ondansetron HCl/Pf [Zofran 4 mg/2 ml] MEDS 01/01/19 18:38 Discontinued 4 mg IVP ONCE STA Sodium Chloride 0.9% [Sodium Chloride] 1,000 ml MEDS 01/01/19 18:[address] ABDOMEN/PELVIS W CONTRAST Stat RADS 01/01/19 19:34 Completed Medications Generic Name Dose Route Start Last Admin Trade Name Freq PRN Reason Stop Dose Admin Sodium Chloride 1,000 mls @ 125 mls/hr 01/01/19 18:37 01/01/19 18:53 Sodium Chloride IV 01/02/19 02:36 125 mls/hr ONCE ONE Administration Sodium Chloride 1 syr 01/01/19 18:38 01/01/19 18:53 Saline Flush IVF 1 syr PRN PRN Administration To flush IV Discontinued Medications Generic Name Dose Route Start Last Admin Trade Name Freq PRN Reason Stop Dose Admin Hydromorphone HCl 0.5 mg 01/01/19 18:39 01/01/19 18:53 Dilaudid 1 Mg/Ml Syringe IVP 01/01/19 18:40 0.5 mg ONCE STA Administration Ondansetron HCl 4 mg 01/01/19 18:38 01/01/19 18:53 Zofran 4 Mg/2 Ml IVP 01/01/19 18:39 4 mg ONCE STA Administration Vital Signs: Temp Pulse Resp BP Pulse Ox 01/01/19 15:47 99.2 F 83 18 136/90 98 Departure - Departure Time of Disposition: 21:00 Disposition: HOME SELF-CARE Discharge Problem: Gastroenteritis Instructions: Gastroenteritis (ED) Condition: Good Pt referred to PMD for follow-up: Yes (1 wk) IPMP verified?: No Additional Instructions: Advanced diet as tolerated Follow up as needed Allergies/Adverse Reactions: Allergies blueberry Adverse Reaction (Verified 01/01/19 15:53) ibuprofen Adverse Reaction (Verified 01/01/19 15:53) kiwi Adverse Reaction (Verified 01/01/19 15:53) pineapple Adverse Reaction (Verified 01/01/19 15:53) wasp Allergy (Severe, Uncoded 07/01/18 12:42) ravinder Notified patient to get medical alert necklace Disposition Discussed With: Patient
[2019-01-01] MEDS ORDERED: SODIUM CHLORIDE 1,000 ML IV ONE (18:37)
[2019-01-01] MEDS ORDERED: ZOFRAN 4 MG/2 ML IVP STA (18:38)
[2019-01-01] MEDS ORDERED: DILAUDID 1 MG/ML SYRINGE IVP STA (18:39)
[2019-01-01 19:03] LABS: URINE PREGNANCY TEST NEGATIVE (NEGATIVE)
--- NOTE | 2019-01-01 20:58 | CT ---
EXAM: CT scan abdomen pelvis with contrast HISTORY: Mid abdominal pain COMPARISON: CT scan abdomen pelvis 03/06/2017, MRI abdomen 10/10/2018 FINDINGS: Contiguous axial images were obtained from lung bases to the symphysis pubis following the uneventful administration of intravenous contrast utilizing 3-mm collimation.. Sagittal and coronal reconstructions were imaged and reviewed.. The visualized lung bases are clear.. There is a stable 1.9 x 1.2 cm hemangioma within the right lobe of the liver. Gallbladder is fluid filled without chol elithiasis. The pancreas spleen and adrenal glands have normal enhanced CT appear. The kidneys excr ete contrast in a normal fashion bilaterally. Scattered subcentimeter mesenteric lymph nodes noted w hich may be related to mesenteric adenitis. There is no CT evidence of appendicitis.. There is no f ree fluid or inflammatory changes.. The bladder is small volumed limiting evaluation.. There is a t ampon artifact IMPRESSION: No acute intra-abdominal findings. Stable hemangioma right lobe of liver. Scattered mesenteric lymph nodes which may be related mesenteric adenitis.
== END 2019-01-01 21:30 | disposition home or self-care (01) ==
LOC: ED 15:47
DX: K52.9 Noninfective gastroenteritis and colitis, unspecified (principal)
CPT/HCPCS: 36415; 80053; 81001; 81025; 85025; 96360; 96361; 96375; 99283

== ENCOUNTER 2019-01-03 06:42 | Emergency (ER) ==
[2019-01-03 06:59] VITALS: BP 127/86; TEMP 98.9; BMI 35.4
--- NOTE | 2019-01-03 07:32 | ED.PDOC ---
General ED Provider: Dr. ZOE ROBERTS Chief Complaint: Diarrhea Stated Complaint: Diarrhea. Intermittent for 36 hrs, Nausea vomiting. Onset 48 hrs with N-V and abdominal pain. Evaluated here Monday with neg work up dx prob viral gastroenteritis. Time Seen by Physician: 07:30 Mode of Arrival: Walk-In Information Source: Patient Exam Limitations: No limitations Primary Care Provider: ROSHAN MYERS Seen Within Last 72 Hours for Same Complaint By: ED Nursing and Triage Documentation Reviewed and Agree: Yes Does patient meet sepsis criteria?: No System Inflammatory Response Syndrome: Not Applicable Sepsis Protocol: For patient's 13 years and over: Temp is 96.8 and below OR 101 and greater Pulse >90 BPM Resp >20/minute Acutely Altered Mental Status Are patient's symptoms suggestive of a new infection, such as: -Pneumonia -Skin, Soft Tissue -Endocarditis -UTI -Bone, Joint Infection -Implantable Device -Acute Abdominal Infection -Wound Infection -Meningitis -Blood Stream Catheter Infection -Unknown Review of Systems - Review Of Systems Constitutional: Reports: Weakness Eyes: Reports: No symptoms Ears, Nose, Mouth, Throat: Reports: No symptoms Respiratory: Reports: No symptoms Cardiac: Reports: No symptoms GI: Reports: Diarrhea, Nausea : Reports: No symptoms Musculoskeletal: Reports: No symptoms Skin: Reports: No symptoms Neurological: Reports: No symptoms Endocrine: Reports: No symptoms Hematologic/Lymphatic: Reports: No symptoms All Other Systems: Reviewed and Negative Past Medical History - Past Medical History Previously Healthy: Yes Endocrine: Reports: Unknown Cardiovascular: Reports: Unknown Respiratory: Reports: Unknown Hematological: Reports: Unknown Gastrointestinal: Reports: Unknown Genitourinary: Reports: Unknown Neuro/Psych: Reports: Unknown Musculoskeletal: Reports: Unknown Cancer: Reports: Unknown Last Menstrual Period: 2 DAYS AGO - Surgical History General Surgical History: Reports: Unknown - Family History Family History: Reports: Unknown - Social History Smoking Status: Former smoker Hx Substance Use: No Alcohol Screening: Occasionally - Immunizations Tetanus Shot up to Date: (UNKNOWN) Physical Exam - Physical Exam Appearance: Ill-appearing, Obese Ill-appearing: Mild Pain Distress: Mild Eyes: MERVAT, EOMI, Conjunctiva clear ENT: Ears normal, Nose normal, Oropharynx normal Respiratory: Airway patent, Breath sounds clear, Breath sounds equal, Respirations nonlabored Cardiovascular: RRR, Pulses normal, No rub, No murmur GI/: Soft, No masses, No Organomegaly, Tender (without guarding or rebound), Bowel sounds hypoactive Musculoskeletal: Normal strength, ROM intact, No edema, No calf tenderness Skin: Warm, Dry, Normal color Neurological: Sensation intact, Motor intact, Reflexes intact, Cranial nerves intact, Alert, Oriented Psychiatric: Affect appropriate, Mood appropriate Critical Care Note - Critical Care Note Total Time (mins): 60 Course - Course Hematology/Chemistry: 01/03/19 07:55 01/03/19 07:55 Orders, Labs, Meds: Lab Review 01/03/19 01/03/19 01/03/19 07:00 07:00 07:55 WBC 4.21 L RBC 5.26 Hgb 15.3 Hct 44.0 MCV 83.7 MCH 29.1 MCHC 34.8 RDW Coeff of Chung 12.0 Plt Count 227 Immature Gran % (Auto) 0.5 Neut % (Auto) 49.8 Lymph % (Auto) 35.9 [place] % (Auto) 12.6 H Eos % (Auto) 1.0 Baso % (Auto) 0.2 Immature Gran # (Auto) 0.0 Neut # (Auto) 2.1 Lymph # (Auto) 1.5 [place] # (Auto) 0.5 Eos # (Auto) 0.0 Baso # (Auto) 0.0 Sodium Potassium Chloride Carbon Dioxide Anion Gap BUN Creatinine Estimated GFR (MDRD) BUN/Creatinine Ratio Glucose Calcium Total Bilirubin AST ALT Alkaline Phosphatase Total Protein Albumin Globulin Albumin/Globulin Ratio Amylase Lipase Urine Color Yellow Urine Clarity Clear Urine pH 6.0 Ur Specific [place] 1.025 Urine Protein 1+ Urine Glucose (UA) Negative Urine Ketones Trace Urine Blood Negative Urine Nitrite Negative Urine Bilirubin Negative Urine Urobilinogen 0.2 Ur Leukocyte Esterase Negative Urine Microscopic WBC 0-2 Ur Squamous Epith Cells 0-2 Urine Mucus 2+ Urine Test Negative Stl Occult Blood (IFOB) Stool Occult Blood #2 Stool Occult Blood #3 01/03/19 01/03/19 07:55 08:45 WBC RBC Hgb Hct MCV MCH MCHC RDW Coeff of Chung Plt Count Immature Gran % (Auto) Neut % (Auto) Lymph % (Auto) [place] % (Auto) Eos % (Auto) Baso % (Auto) Immature Gran # (Auto) Neut # (Auto) Lymph # (Auto) [place] # (Auto) Eos # (Auto) Baso # (Auto) Sodium 140.0 Potassium 3.49 L Chloride 104.8 Carbon Dioxide 24.0 Anion Gap 14.69 BUN 12.2 Creatinine 0.82 Estimated GFR (MDRD) 85.00 BUN/Creatinine Ratio 14.87 Glucose 90.4 Calcium 8.86 Total Bilirubin 0.39 AST 24.1 ALT 15.4 Alkaline Phosphatase 64.6 Total Protein 7.86 Albumin 4.41 Globulin 3.45 Albumin/Globulin Ratio 1.27 Amylase 50.6 Lipase 40.0 Urine Color Urine Clarity Urine pH Ur Specific [place] Urine Protein Urine Glucose (UA) Urine Ketones Urine Blood Urine Nitrite Urine Bilirubin Urine Urobilinogen Ur Leukocyte Esterase Urine Microscopic WBC Ur Squamous Epith Cells Urine Mucus Urine Test Stl Occult Blood (IFOB) Negative Stool Occult Blood #2 No specimen received Stool Occult Blood #3 No specimen received Orders Category Date Time Status GIVE HS SNACK 2100 CARE 01/03/19 08:03 Active CLEAR LIQUID DIET DIETARY 01/03/19 Breakfast Ordered IV [ED IV/MEDIPORT/POWERPORT] .ONCE EMERGENCY 01/03/19 07:34 Active AMYLASE Stat LAB 01/03/19 07:55 Completed BLOOD CULTURE (ED ONLY) Stat LAB 01/03/19 07:55 Received CBC W/ AUTO DIFF Stat LAB 01/03/19 07:55 Completed CMP [COMPREHENSIVE METABOLIC PANEL] Stat LAB 01/03/19 07:55 Completed LIPASE Stat LAB 01/03/19 07:55 Completed NOROVIRUS, RT-PCR Stat LAB 01/03/19 07:51 Received OCCULT BLOOD, STOOL Stat LAB 01/03/19 08:45 Completed OVA AND PARASITES EXAM Stat LAB 01/03/19 07:51 Received ROTAVIRUS,STOOL Stat LAB 01/03/19 07:51 Received STOOL CULTURE Stat LAB 01/03/19 07:51 Received UA [URINALYSIS C & S IF INDICATED] Stat LAB 01/03/19 07:00 Completed URINE Stat LAB 01/03/19 07:00 Completed 0.9 % Sodium Chloride [Saline Flush] MEDS 01/03/19 07:35 Active 1 syr IVF PRN PRN Diphenoxylate HCl/Atropine [Lomotil] MEDS 01/03/19 08:59 Discontinued 2 tab PO ONCE STA Ondansetron HCl/Pf [Zofran 4 mg/2 ml] MEDS 01/03/19 07:39 Discontinued 4 mg IVP ONCE STA Potassium Chloride [K-Dur] MEDS 01/03/19 09:05 Discontinued 20 meq PO ONCE STA Sodium Chloride 0.9% [Sodium Chloride] 1,000 ml MEDS 01/03/19 07:41 Discontinued IV BOLUS ABDOMEN 1 VIEW Stat RADS 01/03/19 07:49 Ordered Medications Generic Name Dose Route Start Last Admin Trade Name Freq PRN Reason Stop Dose Admin Sodium Chloride 1 syr 01/03/19 07:35 01/03/19 07:56 Saline Flush IVF 1 syr PRN PRN Administration To flush IV Discontinued Medications Generic Name Dose Route Start Last Admin Trade Name Freq PRN Reason Stop Dose Admin Diphenoxylate HCl/Atropine 2 tab 01/03/19 08:59 01/03/19 09:16 Lomotil PO 01/03/19 09:00 2 tab ONCE STA Administration Sodium Chloride 1,000 mls @ 1,000 mls/hr 01/03/19 07:41 01/03/19 07:56 Sodium Chloride IV 01/03/19 08:40 1,000 mls/hr BOLUS STA Administration Ondansetron HCl 4 mg 01/03/19 07:39 01/03/19 07:56 Zofran 4 Mg/2 Ml IVP 01/03/19 07:40 4 mg ONCE STA Administration Potassium Chloride 20 meq 01/03/19 09:05 01/03/19 09:17 K-Dur PO 01/03/19 09:06 20 meq ONCE STA Administration Vital Signs: Temp Pulse Resp BP Pulse Ox 01/03/19 06:42 98.9 F 96 H 18 127/86 98 Departure - Departure Time of Disposition: 09:25 Disposition: HOME SELF-CARE Discharge Problem: Gastroenteritis Instructions: Gastroenteritis (ED), Dehydration (ED) Condition: Fair Pt referred to PMD for follow-up: Yes IPMP verified?: No Additional Instructions: Follow diet instructions as directed. Use Lomotil as needed for diarrhea and cramping Zofran as needed for nausea and vomiting remain on clear liquids for 12 hrs and advance to full liq/Brat diet per tolerance Allergies/Adverse Reactions: Allergies blueberry Adverse Reaction (Verified 01/03/19 06:58) ibuprofen Adverse Reaction (Verified 01/03/19 06:58) kiwi Adverse Reaction (Verified 01/03/19 06:58) pineapple Adverse Reaction (Verified 01/03/19 06:58) wasp Allergy (Severe, Uncoded 01/03/19 06:58) ravinder Notified patient to get medical alert necklace Home Medications: Ambulatory Orders Ondansetron [Zofran Odt] 4 mg PO Q8H PRN #7 tab.rapdis 01/01/19 Disposition Discussed With: Patient, Family Additional Information: Triaged 0642 Roomed 0705 PE 0725 Orders 0729
[2019-01-03] MEDS ORDERED: ZOFRAN 4 MG/2 ML IVP STA (07:39)
[2019-01-03] MEDS ORDERED: SODIUM CHLORIDE 1,000 ML IV STA (07:41)
[2019-01-03 08:47] LABS: URINE PREGNANCY TEST NEGATIVE (NEGATIVE)
[2019-01-03] MEDS ORDERED: LOMOTIL PO STA (08:59)
[2019-01-03] MEDS ORDERED: K-DUR PO STA (09:05)
--- NOTE | 2019-01-03 09:26 | DI ---
EXAM: Single view of the abdomen. History: Abdominal pain and cramping. Comparison: CT abdomen pelvis 01/01/2019 Findings: A few borderline dilated loops of large bowel. No evidence for bowel obstruction. No frankie e air. No suspicious calcifications. No acute osseous abnormalities. Tampon device is seen project ing over the lower pelvis. Impression: A few borderline dilated loops of large bowel probably due to a mild ileus or enteritis. No specific evidence for bowel obstruction.
== END 2019-01-03 09:47 | disposition home or self-care (01) ==
LOC: ED 06:42
DX: K52.9 Noninfective gastroenteritis and colitis, unspecified (principal)
CPT/HCPCS: 36415; 80053; 81001; 81025; 82150; 82272; 83690; 85025; 87015; 87040; 87045; 87177; 87425; 87899; 96365; 96375; 99283

== ENCOUNTER 2019-02-14 14:14 | Emergency (ER) ==
[2019-02-14 14:18] VITALS: BP 146/93; TEMP 99.1; BMI 35.8
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
[2019-02-14 15:39] LABS: URINE PREGNANCY TEST NEGATIVE (NEGATIVE)
--- NOTE | 2019-02-14 16:26 | CT ---
EXAM: CT left elbow without contrast HISTORY: Injury, pain over proximal medial joint COMPARISON: None TECHNIQUE: CT left elbow performed without intravenous contrast. Coronal and sagittal reformatted i mages obtained. FINDINGS: Bone mineralization is normal. No fracture or dislocation. Elbow joint appears normal. No joint effusion. No focal soft tissue abnormality. IMPRESSION: No fracture or dislocation.
== END 2019-02-14 17:25 | disposition home or self-care (01) ==
LOC: ED 14:14
DX: S53.402A Unspecified sprain of left elbow, initial encounter (principal); W10.9XXA Fall (on) (from) unspecified stairs and steps, initial encounter; Y04.2XXA Assault by strike against or bumped into by another person, initial encounter
CPT/HCPCS: 81025; 99283

== ENCOUNTER 2019-02-19 12:17 | Outpatient (CLI) ==
--- NOTE | 2019-02-19 12:52 | DI ---
EXAM: Three views of the left humerus. History: Left arm pain. Findings: No acute fracture or dislocation. No abnormal calcifications or radiopaque foreign bodies . Joint spaces are preserved. Impression: Unremarkable exam
--- NOTE | 2019-02-19 12:53 | DI ---
EXAM: LEFT SHOULDER HISTORY: Shoulder pain FINDINGS: Left shoulder three-view. Bone and joint structures are within normal limits. There is n o joint dislocation or fracture identified. Bone density and soft tissues are unremarkable. IMPRESSION: Within normal limits.
== END 2019-02-19 12:18 | disposition home or self-care (01) ==
LOC: RAD 12:17
PROVIDERS: ATTEND Nurse Practitioner Family
DX: M25.512 Pain in left shoulder (principal)

== ENCOUNTER 2019-03-20 10:41 | Outpatient (CLI) | END 2019-03-20 10:42 | disposition home or self-care (01) | LOC: RHC-LAB 10:41 → FCC-LAB 10:42 | PROVIDERS: ATTEND Family Medicine | DX: R53.81 Other malaise (principal); Z71.1 Person with feared health complaint in whom no diagnosis is made; F43.0 Acute stress reaction; R63.5 Abnormal weight gain | CPT/HCPCS: 36415; 80053; 84443; 85025 ==

== ENCOUNTER 2019-04-09 15:00 | Outpatient (RCR) ==
--- NOTE | 2019-04-09 11:44 | RS.OPPTEV2 ---
Date of Note: 04/04/19 Visit #: 1 Number of visits approved by Insurance: pending Date of Evaluation: 04/04/19 Payer Source: Medicaid Surgery Performed?: Yes Procedure Performed: Arthroscopic assisted ACL reconstruction using hamstring auto graft left knee Date of Procedure: 03/27/19 Treatment Diagnosis: Left knee pain, left knee effusion, s/p ACL reconstruction History of Condition/Mechanism of Injury:: Patient states she injured her left knee due to a fall on 02/03/19. States pain and limited function led her to have surgery. She reports no history of previous surgery to the left knee. Prior Level of Function.....Patient was independent with: ADL's, Self Care, Work /Vocation, Caregiving, Ambulation/Mobility, Community Integration/Access Functional Limitations: Sleep, Self Care, ADL's, Reaching, Pushing, Pulling, Lifting, Carrying, Sitting, Standing, Bending, Squatting, Ambulation, Community Access/Integration Current Subjective/complaints:: Patient reports she has been icing the knee. She has been ambulating with one crutch for the last few days. She lives in a two story apartment, but has been staying down stairs. She is wearing her locked knee brace when up. She unlocks the brace when she sits down. She was seen once by Physical Therapy in [place] and given a HEP that she has been working on. States she has discomfort in the back of the knee and assumes this is wear they took some hamstring tendon. Treatment Side (optional): Left Medical History Surgical History: Smoking Status: Current some day smoker Hx Home Medications: Percocet Patient's Goals: Her goal is to regain left knee ROM and return to her previous level of function. Pain Assessment - Pain Description Pain Location: left knee Current Pain Intensity: 6/10 Worst Pain Intensity: 8/10 Functional Outcome Measure LE Functional Scale: 14 (14/80=82.5% impairment) - G Codes & Severity Modifier G Codes & Modifier: NA Source of G Code score: NA Observation - Observation Inspection: Presents to therapy with locked knee brace to left knee and ambulating with one crutch on left side. Upon removal of ROXANNE wrap, exhibits incision sites with steri-strips in place. Demonstrates two small scope sites, and one diagonal incision 6 cm in length at the anterior region of the left knee. Incisions are clean and almost scab-free. Girth Measurement Lower: Left knee: Superior pole of patella: 55 cm, Inferior pole of patella 52 cm Gait - Gait Pattern Gait Comments: Patient ambulates WBAT with knee brace on left LE with one crutch on the left side. Demonstrates decreased stance on left LE. - Left Knee ROM Left Knee Extension: -5 degrees from full extension Left Knee Flexion: 70 (degrees AAROM) Knee ROM Limitations: Soft Tissue Tightness, Pain - Right Knee ROM Right Knee Extension: +1 Hyperextension Right Knee Flexion: 125 (degrees AROM) - Left Knee Strength Left Knee Extension: 3+ Fair+ Left Knee Flexion: 4- Good- - Right Knee Strength Right Knee Extension: 5 Normal Right Knee Flexion: 5 Normal Palpation Comments:: General tenderness in the areas of the incisions. Sensation - Sensation Comments: Reports slight impaired sensation to light touch around the immediate areas of the incisions. Left lower leg otherwise intact sensation. - Treatment Modality: Electrical Stim Unattended Parameters/Method Applied: 4 large pads crossed current HVGS X 15 mins to the left knee up to 120 peak volts with cold pack Patient Position: Supine Interventions - Exercise/Activities/Manual Therapy Exercises/Activities: Patient assisted with ROM to the left knee into flexion/ extension. Performed quad sets, SLR with assistance, ankle pumps, hip abduction /adduction. Demonstrated and discussed using the crutch on her right side to promote a more natural gait pattern. Total minutes of Exercise: 24 mins Manual Therapy: NA HOME EXERCISE PROGRAM: AP's, Quad sets, SLR with assistance, hip abd/add, gluteal sets,heel slides. - Charges Timed Code Treatment Minutes: 24 mins Total Treatment Time: 65 mins Procedures billed for this date of service:: Eval Low, Estim, CP EVALUATION COMPLEXITY LEVEL EVALUATION COMPLEXITY LEVEL: HISTORY: Low (unremarkable), EXAM OF BODY SYSTEMS: Low, CLINICAL PRESENTATION: Low, CLINICAL DECISION MAKING: Low Assessment Assessment: Patient presents one week s/p ACL reconstruction. She exhibits limited left knee ROM and impaired left quad strength. She is unable to perform selfcare, ADL's and ambulation independently due to limitations since surgery. She demonstrates great potential to regain functional ROM and strength of the left knee and return to her prior level of function. Patient Education: Education of diagnosis, Body/Joint mechanics, Home Exercise Program, Home Safety, Education of Plan of Care Rehab Potential: Good Short Term Goals Goal #1: Patient independent and compliant with HEP. Goal to be met by: 04/23/19 Goal #2: Left quad strength improved to 4/5. Goal to be met by: 04/23/19 Goal #3: Left knee AROM 0 to 90 degrees. Goal to be met by: 04/23/19 Nursing Home Goals Goal #1: Pt knows HEP and to continue ex's to maintain level of function at D/C. Goal to be met by: 06/08/19 Goal #2: Pt to amb. w/o assist device with min. gt deviations, community distances. Goal to be met by: 06/08/19 Goal #3: Left knee AROM to perform all selfcare and ADL's w/o difficulty. Goal to be met by: 06/08/19 Goal #4: Left knee strength 4+/5. 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
--- NOTE | 2019-04-09 15:56 | RS.OPPTDN ---
Subjective Date of Note: 04/09/19 Visit #: 2 Number of visits approved by Insurance: pending Date of Evaluation: 04/04/19 Payer Source: Medicaid Treatment Diagnosis: Left knee pain, left knee effusion, s/p ACL reconstruction Current Subjective/complaints:: Pt reports she is doing HEP. States she is walking better with crutch. States left LE seems more swollen today. - Treatment Modality: Electrical Stim Unattended Parameters/Method Applied: [id number] HVGC to 130p.v. with 4 large pads cross current to the left knee with CP following EX. Patient Position: Supine Comments: Patient in long sitting - Heat/Cryotherapy Treatment: Cryotherapy (with Estim ) Interventions - Exercise/Activities/Manual Therapy Exercises/Activities: Performs quad sets, SLR with assistance, hip abd with assist, and ankle pumps. Began light ham sets. Assisted heel slides. In sitting ABS, assisted left knee flexion/ext. Total minutes of Exercise: 24mins Manual Therapy: NA HOME EXERCISE PROGRAM: AP's, Quad sets, SLR with assistance, hip abd/add, gluteal sets, heel slides. - Charges Timed Code Treatment Minutes: 24mins Total Treatment Time: 48mins Procedures billed for this date of service:: EX2, CP, Estim unattended Assessment: Patient appears to be working on HEP and motivated to progress. Patient Education: Home Exercise Program Patient demonstrates compliance with HEP?: Yes Short Term Goals Goal #1: Patient independent and compliant with HEP. Goal to be met by: 04/23/19 Progress towards Goal:: Progressing Goal #2: Left quad strength improved to 4/5. Goal to be met by: 04/23/19 Goal #3: Left knee AROM 0 to 90 degrees. Goal to be met by: 04/23/19 Progress towards Goal:: Progressing Care Home Goals Goal #1: Pt knows HEP and to continue ex's to maintain level of function at D/C. Goal to be met by: 06/08/19 Goal #2: Pt to amb. w/o assist device with min. gt deviations, community distances. Goal to be met by: 06/08/19 Goal #3: Left knee AROM to perform all selfcare and ADL's w/o difficulty. Goal to be met by: 06/08/19 Goal #4: Left knee strength 4+/5. Goal to be met by: 06/08/19 Plan Dates of Care Home Goals: 06/08/19 Expiration date of current Insurance Approval:: 06/08/19 PLAN: Progress with exercise per protocol.
== END 2019-04-12 23:59 ==
PROVIDERS: ATTEND Orthopaedic Surgery
DX: S83.512D Sprain of anterior cruciate ligament of left knee, subsequent encounter (principal); Z98.890 Other specified postprocedural states

== ENCOUNTER 2019-05-08 10:10 | Outpatient (CLI) | END 2019-05-08 10:11 | disposition home or self-care (01) | LOC: RHC-LAB 10:10 → FCC-LAB 10:11 | PROVIDERS: ATTEND Family Medicine | DX: K52.9 Noninfective gastroenteritis and colitis, unspecified (principal); Z87.59 Personal history of other complications of pregnancy, childbirth and the puerperium; Z30.09 Encounter for other general counseling and advice on contraception; Z32.01 Encounter for pregnancy test, result positive | CPT/HCPCS: 36415; 84702 ==

== ENCOUNTER 2019-07-10 14:00 | Outpatient (RCR) ==
[2019-05-23 13:40] VITALS: BMI 37.3
--- NOTE | 2019-06-28 10:48 | RS.OPPTEV2 ---
Date of Note: 06/28/19 Visit #: 1 Number of visits approved by Insurance: pending Date of Evaluation: 06/28/19 Payer Source: Medicaid Surgery Performed?: Yes Procedure Performed: Arthroscopic assisted ACL reconstruction using hamstring auto graft left knee on 03/27/19. Treatment Diagnosis: Left knee pain, left knee effusion, s/p ACL reconstruction History of Condition/Mechanism of Injury:: Patient states she injured her left knee due to a fall on 02/03/19. States pain and limited function led her to have surgery. She reports no history of previous surgery to the left knee. Her therapy following surgery was limited due to insurance constraints and other issues. Prior Level of Function.....Patient was independent with: ADL's, Self Care, Work /Vocation, Caregiving, Ambulation/Mobility, Community Integration/Access Functional Limitations: Sleep, Self Care, ADL's, Carrying, Sitting, Standing, Bending, Squatting, Ambulation, Community Access/Integration Current Subjective/complaints:: Payton reports significant left knee pain. States it averages about 5/10. Pain is worse at night, especially when turning over in bed. States she went to the doctor and was told if she is not able to get her knee straight when she returns for follow up, she will have to have surgery to remove scar tissue. States the left leg feels heavy. States she feels like the left knee will buckle at times. She has several stairs in her home and has to take one at a time. She has more difficulty with descending stairs. She is having popping at the knee joint. She is not taking pain medication and has not been icing the knee. She goes back to the doctor for follow up on Aug.13 and she is hoping to avoid another surgery. She asks if she can work out at the gym and also asks how long it will be before she can do squats as exercise. Treatment Side (optional): Left Medical History Surgical History: Surgical History Comments:: Left knee ACL reconstruction 03/27/19 Smoking Status: Current some day smoker Patient's Goals: Her goal is to avoid another knee surgery and return to her prior level of function. Pain Assessment - Pain Description Pain Location: left knee Current Pain Intensity: 5/10 Worst Pain Intensity: 9/10 at night, especially with turning over in bed Functional Outcome Measure LE Functional Scale: 43 (43/80=46.25% impaired) - G Codes & Severity Modifier G Codes & Modifier: NA Source of G Code score: NA Observation - Observation Inspection: Left knee presents with clean, well healing incision lines from her ACL surgery. Presents with puffiness at inferior pole of patella and over tibial plateau. Gait - Gait Pattern Gait Comments: Patient is ambulating without an assistive device. She demonstrates decreased stance phase on the left LE. Also exhibits decreased left hip and knee flexion and lacks full terminal knee extension at heelstrike. - Left Knee ROM Left Knee Extension: full extension Left Knee Flexion: 120 (degrees AROM) - Right Knee ROM Right Knee Extension: full extension Right Knee Flexion: 126 (degrees AROM) - Left Knee Strength Left Knee Extension: 4- Good- Left Knee Flexion: 4 Good Comments: Left hip generally 4+/5. - Right Knee Strength Right Knee Extension: 5 Normal Right Knee Flexion: 5 Normal Palpation Comments:: Patient reports slight tenderness over the tibial plateau and at the inferior pole of the patella on the left knee. Sensation - Sensation Right Lower Extremity: Intact/Normal Left Lower Extremity: Intact/Normal Additional Comments: Additional Comments: Left heelcord is tight, DF to neutral. - Treatment Modality: Ultrasound Parameters/Method Applied: Pulsed US @ 20% 1.0 w/cm2 X 6 mins over patella tendon area. Patient Position: Supine Interventions - Exercise/Activities/Manual Therapy Exercises/Activities: Patient instructed in HEP of SLR's for hip flexion and abduction, SAQ's, hip adduction isometrics (w/ pillow), and gastroc stretch with towel. Advised her to not worry about working out at the gym and especially not doing any squats for exercise at this time. Also advised she go back to icing the knee, especially at night to help with pain management. Total minutes of Exercise: X 14 mins Manual Therapy: NA HOME EXERCISE PROGRAM: SLR's for hip flexion and abduction, SAQ's, hip adduction isometrics (w/ pillow), and gastroc stretch with towel. - Charges Timed Code Treatment Minutes: 20 mins Total Treatment Time: 55 mins Procedures billed for this date of service:: KT [place], US EVALUATION COMPLEXITY LEVEL EVALUATION COMPLEXITY LEVEL: HISTORY: Low (S/p left ACL reconstruction), EXAM OF BODY SYSTEMS: Low, CLINICAL PRESENTATION: Low, CLINICAL DECISION MAKING: Low Assessment Assessment: Patient presents three months s/p ACL reconstruction. She exhibits good left knee AROM. Left knee strength is impaired, especially the quads. She reports significant pain at night and states she is insecure when descending stairs and walking long distances. She demonstrates the need for skilled therapy for knee strengthening and protection of the surgery site, to help her return to her prior level of function. Patient Education: Education of diagnosis, Body/Joint mechanics, Home Exercise Program, Education of Plan of Care Rehab Potential: Good Short Term Goals Goal #1: Patient independent and compliant with HEP. Goal to be met by: 07/12/19 Goal #2: Left quad strength improved to 4+/5 Goal to be met by: 07/12/19 Goal #3: Left hip strength 5/5. Goal to be met by: 07/12/19 Goal #4: Pt to report left knee pain less than 4/10. Goal to be met by: 07/12/19 Em Physician Goals Goal #1: Pt knows HEP and to continue ex's to maintain level of function at D/C. Goal to be met by: 08/12/19 Goal #2: Pt to amb. w/o assist device with min. gt deviations, community distances. Goal to be met by: 08/12/19 Goal #3: Left knee AROM to perform all selfcare and ADL's w/o difficulty. Goal to be met by: 08/12/19 Goal #4: Pt to ascend/descend stairs without difficulty. Goal to be met by: 08/12/19 Plan - Treatment to be Provided Procedures: Therapeutic Exercises, Therapeutic Activity, Gait Training, Neuromuscular Rehab, Patient Education Modalities: Electrical Stimulation, Cryotherapy - Treatment Plan Frequency: 3 X week Duration: 6 weeks Dates of Jail Goals: 08/12/19 Expiration date of current Insurance Approval:: pending - Treatment Code (1) Weakness of left leg Code(s): R29.898 - OTH SYMPTOMS AND SIGNS INVOLVING THE MUSCULOSKELETAL SYSTEM Comments: R29.898 (2) Gait difficulty Code(s): R26.9 - UNSPECIFIED ABNORMALITIES OF GAIT AND MOBILITY Comments: R26.9 (3) S/P ACL reconstruction Code(s): Z98.89 - OTHER SPECIFIED POSTPROCEDURAL STATES * DO NOT USE * Comments: Z98.890
--- NOTE | 2019-07-02 16:05 | RS.OPPTDN ---
Subjective Date of Note: 07/02/19 Visit #: 2 Number of visits approved by Insurance: pending Date of Evaluation: 06/28/19 Payer Source: Medicaid Treatment Diagnosis: Left knee pain, left knee effusion, s/p ACL reconstruction Current Subjective/complaints:: Patient reports she is has little to no discomfort with walking today. States she has pain at night when trying to get comfortable to sleep. She questions department hours and being unable to attend. After further discussion she should be able to attend a min of 5 sessions before starting. Then she states she will be working afternoons. Pain Assessment - Pain Description Pain Location: left knee Current Pain Intensity: moderate+ at night - Treatment Modality: Ultrasound Parameters/Method Applied: [id number] to the left knee joint at 1.5w/cm2. Patient Position: Supine Interventions - Exercise/Activities/Manual Therapy Exercises/Activities: Quad sets and ham sets. 1 11/14# for SLR, 4s/5reps. SLR/VMO and hip abd, 2s/10reps each. Isometric hip adduction and isometric ankle inversion, both with pillow. Assisted heel cord stretching. Green theraband for resisted ankle df and ham curls. In sitting, green theraband resisted ham curl. Standing mini-squat and ham curl. Ended with additional 4 mins on stationary bike, slow pace. Total minutes of Exercise: 35mins/42mins Manual Therapy: NA HOME EXERCISE PROGRAM: SLR's for hip flexion and abduction, SAQ's, hip adduction isometrics (w/ pillow), and gastroc stretch with towel. - Charges Timed Code Treatment Minutes: 45mins Total Treatment Time: 52mins Procedures billed for this date of service:: US, EX2 Assessment: Patient reports discomfort at times. She should benefit from strengthening of the left knee. Patient Education: Body/Joint mechanics, Home Exercise Program Patient demonstrates compliance with HEP?: Yes Short Term Goals Goal #1: Patient independent and compliant with HEP. Goal to be met by: 07/12/19 Progress towards Goal:: Progressing Goal #2: Left quad strength improved to 4+/5 Goal to be met by: 07/12/19 Goal #3: Left hip strength 5/5. Goal to be met by: 07/12/19 Goal #4: Pt to report left knee pain less than 4/10. Goal to be met by: 07/12/19 Solar Designer/Installer Goals Goal #1: Pt knows HEP and to continue ex's to maintain level of function at D/C. Goal to be met by: 08/12/19 Goal #2: Pt to amb. w/o assist device with min. gt deviations, community distances. Goal to be met by: 08/12/19 Goal #3: Left knee AROM to perform all selfcare and ADL's w/o difficulty. Goal to be met by: 08/12/19 Goal #4: Pt to ascend/descend stairs without difficulty. Goal to be met by: 08/12/19 Plan Dates of Solar Designer/Installer Goals: 08/12/19 Expiration date of current Insurance Approval:: 08/12/19 PLAN: Continue modalities and progress exercise to reduce pain and increase functional activity.
--- NOTE | 2019-07-04 10:46 | RS.CXNS ---
Date of scheduled appointment: 07/04/19 Type: No Show
--- NOTE | 2019-07-10 15:50 | RS.OPPTDN ---
Subjective Date of Note: 07/10/19 Visit #: 3 Number of visits approved by Insurance: pending Date of Evaluation: 06/28/19 Payer Source: Medicaid Treatment Diagnosis: Left knee pain, left knee effusion, s/p ACL reconstruction Current Subjective/complaints:: Patient reports resistive exercise last session increased her left knee pain. Patient states she is working on HEP. Pain Assessment - Pain Description Pain Location: left knee Pain Description: Tightness, Sharp, Aching Current Pain Intensity: mild to mod Other Comments regarding Pain:: States she has pain in the mornings when she first gets out of bed. - Treatment Modality: Ultrasound Parameters/Method Applied: [id number] at 1.5w/cm2 to the left knee joint prior to EX. Patient Position: Supine Interventions - Exercise/Activities/Manual Therapy Exercises/Activities: Assisted hamstring, heel cord, and knee flexion stretch. Quad sets and ham sets. 1 1/2# for SLR, 4s/5reps. Added 1 1/2# to SLR/VMO and hip abd, 2s/10reps each. Isometric hip adduction and isometric ankle inversion, both with ball. Green theraband for resisted ankle df and ham curls. Ended with additional 5 mins on stationary bike, slow pace. Total minutes of Exercise: 38mins, 43mins Manual Therapy: NA HOME EXERCISE PROGRAM: SLR's for hip flexion and abduction, SAQ's, hip adduction isometrics (w/ pillow), and gastroc stretch with towel. - Charges Timed Code Treatment Minutes: 48mins Total Treatment Time: 53mins Procedures billed for this date of service:: EX2, US Assessment: Patient reporting pain in the left knee. She will need to consistently attend for treatment and progression of strengthening exercise. Patient Education: Home Exercise Program, Activity Modification Comments: Advised patient to be consistent with performing HEP 4 times per day, especially over the next week while she is not working. Patient demonstrates compliance with HEP?: Yes Short Term Goals Goal #1: Patient independent and compliant with HEP. Goal to be met by: 07/12/19 Progress towards Goal:: Progressing Goal #2: Left quad strength improved to 4+/5 Goal to be met by: 07/12/19 Progress towards Goal:: Progressing Goal #3: Left hip strength 5/5. Goal to be met by: 07/12/19 Progress towards Goal:: Progressing Goal #4: Pt to report left knee pain less than 4/10. Goal to be met by: 07/12/19 Senior Cytogenetic Technologist Goals Goal #1: Pt knows HEP and to continue ex's to maintain level of function at D/C. Goal to be met by: 08/12/19 Goal #2: Pt to amb. w/o assist device with min. gt deviations, community distances. Goal to be met by: 08/12/19 Goal #3: Left knee AROM to perform all selfcare and ADL's w/o difficulty. Goal to be met by: 08/12/19 Goal #4: Pt to ascend/descend stairs without difficulty. Goal to be met by: 08/12/19 Plan Dates of Senior Cytogenetic Technologist Goals: 08/12/19 Expiration date of current Insurance Approval:: 08/12/19 PLAN: Continue modalities and progress exercise to increase functional activity level.
--- NOTE | 2019-07-11 15:41 | RS.CXNS ---
Date of scheduled appointment: 07/11/19 Type: No Show (Patient does not attend appointment or call to cancel/reschedule. )
== END 2019-07-13 23:59 ==
PROVIDERS: ATTEND Orthopaedic Surgery
DX: M24.662 Ankylosis, left knee (principal); S83.512D Sprain of anterior cruciate ligament of left knee, subsequent encounter